=== PATIENT | female | born 1955 | race Caucasian/White ===

== ENCOUNTER 2017-05-15 08:31 | Outpatient (RCR) | payer OTHER ==
[~2017-05-15 08:31] MED LIST: ALPR.5T PO; AMLO10TA82 PO; ASPI-875 PO; ATRV10T PO; EXEN10PE SQ; IRON; LEVO75TA57 PO; MTF500T PO; NEBI20TA2 PO; NF-ESOM40C PO; OLME20TA21 PO; VITAMIN D; VNL75CCR PO; [UNRECOGNIZED DRUG - OTHER]; [UNRECOGNIZED DRUG - OTHER]; [UNRECOGNIZED DRUG - OTHER] PO
== END 2017-06-09 14:27 | disposition home or self-care (01) ==
PROVIDERS: ATTEND Nurse Practitioner Family
DX: Z47.1 Aftercare following joint replacement surgery (principal); Z96.652 Presence of left artificial knee joint

== ENCOUNTER → 2018-01-07 | Outpatient (CLI) | payer OTHER ==
[~2018-01-07] VITALS: Ht 165.1 cm; Wt 99.8 kg
[~2018-01-07] MED LIST changes: +CATHETER FLUSH 10 ML SYR IV PRN
[2018-01-07 09:24] VITALS: BP 151/86
--- NOTE | 2018-01-07 23:24 | STRESS TEST ---
DATE OF SERVICE: 01/07/2018 EXERCISE MYOVIEW STRESS TEST REPORT REFERRING PHYSICIAN: Dr. Kumari. Baseline heart rate is 72. Baseline blood pressure 151/86. Baseline EKG is sinus rhythm with no ischemic changes. In summary, the patient was injected with 9.99 mCi of technetium-99 Myoview and the resting images were obtained. Then, the patient started exercising with a baseline heart rate, blood pressure and EKG mentioned above. The patient was able to exercise for a total of 8 minutes 45 seconds on standard Andre protocol, achieving maximum heart rate of 139, which is 87% of maximum expected heart rate. With peak exercise level, there were no significant EKG changes. Blood pressure at peak was 184/105. During recovery, heart rate and blood pressure returned to baseline. EKG returned to baseline. The resting and stress images were reviewed and compared in the short axis, horizontal long axis, and vertical long axis views. Review of the images showed good radiotracer uptake with no significant ischemia or infarction. SSS is 0. TID value 1.04. On the gated images, the left ventricle appeared to be in normal size with normal contractility. Calculated ejection fraction is 64%. CONCLUSION: 1. Good exercise tolerance, a total of 8 minutes 45 seconds on standard Andre protocol, total of 10.3 METS achieving 87% of maximum expected heart rate. 2. Appropriate heart rate and blood pressure response to exercise returned to baseline during recovery. 3. No ischemia or infarction on SPECT images. 4. Negative exercise stress test by EKG criteria. 5. Normal left ventricular size with normal contractility. Calculated ejection fraction is 64%. Job ID: [id number] DocumentID: [id number] Dictated Date: 01/07/2018 19:12:31 Brand Activation Manager Date: 01/07/2018 22:46:21 Dictated By: YULI KEN MD
== END ==
LOC: CARD 07:32
PROVIDERS: ATTEND Internal Medicine Cardiovascular Disease
DX: R07.89 Other chest pain (principal); I51.7 Cardiomegaly; D64.9 Anemia, unspecified; E11.9 Type 2 diabetes mellitus without complications
CPT/HCPCS: 78452; 93017

== ENCOUNTER → 2018-01-22 | Outpatient (CLI) | payer OTHER ==
[~2018-01-22] MED LIST changes: -CATHETER FLUSH 10 ML SYR IV PRN
== END ==
LOC: CARD 09:42
PROVIDERS: ATTEND Internal Medicine Cardiovascular Disease
DX: R07.89 Other chest pain (principal); I11.9 Hypertensive heart disease without heart failure; D64.9 Anemia, unspecified; I08.1 Rheumatic disorders of both mitral and tricuspid valves
CPT/HCPCS: 93306

== ENCOUNTER → 2019-11-11 | Outpatient (CLI) | payer OTHER ==
--- NOTE | 2019-11-11 17:36 | Diagnostic Imaging Report ---
INDICATION: Back pain. EXAMINATION: AP and lateral views of the lumbar spine were obtained. FINDINGS: The lumbar vertebrae are normal in height and alignment. There are mild osteophytes anteriorly from L1 through L4. There is some facet degenerative change from L3 through S1. There is no significant focal disc space narrowing. There is mild levoscoliotic change. IMPRESSION: Mild levoscoliotic change and mild degenerative findings. No compression deformity or acute appearing abnormality. Dictated by: Dictated on workstation # [id number]
== END ==
LOC: RAD 16:16
PROVIDERS: ATTEND Family Medicine
DX: M47.816 Spondylosis without myelopathy or radiculopathy, lumbar region (principal); M41.9 Scoliosis, unspecified
CPT/HCPCS: 72100

== ENCOUNTER 2020-10-26 16:20 | Outpatient (RCR) | payer OTHER | END 2020-11-13 | disposition home or self-care (01) | PROVIDERS: ATTEND Family Medicine | DX: M54.5 Low back pain (principal); M25.512 Pain in left shoulder; M25.511 Pain in right shoulder; I10 Essential (primary) hypertension; E11.9 Type 2 diabetes mellitus without complications; Z96.653 Presence of artificial knee joint, bilateral ==

== ENCOUNTER → 2021-01-08 | Outpatient (CLI) | payer OTHER ==
--- NOTE | 2021-01-08 19:08 | Diagnostic Imaging Report ---
INDICATION: Foot pain. COMPARISON: None FINDINGS: Three radiographic views of the right foot were obtained. There is acute nondisplaced obliquely oriented fracture of the distal shaft of the 5th metatarsal. There is no evidence of intra-articular extension. Joint spaces are maintained. 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 No unexpected radiopaque foreign bodies are identified. IMPRESSION: 1. Acute nondisplaced fracture of the 5th metatarsal, as described above. Dictated by: Dictated on workstation # [id number]
== END ==
LOC: RAD 13:06
PROVIDERS: ATTEND Family Medicine
DX: S92.354A Nondisplaced fracture of fifth metatarsal bone, right foot, initial encounter for closed fracture (principal); L97.511 Non-pressure chronic ulcer of other part of right foot limited to breakdown of skin; X58.XXXA Exposure to other specified factors, initial encounter
CPT/HCPCS: 73630

== ENCOUNTER → 2021-01-23 | Outpatient (CLI) | payer OTHER ==
--- NOTE | 2021-01-23 17:26 | Diagnostic Imaging Report ---
INDICATION: Right foot pain. TIME OF EXAM: 4:34 PM 3 views right foot were obtained. There is an obliquely oriented fracture through the distal 5th metatarsal. There is a small amount of callus formation present consistent with some healing. Alignment is anatomic. Remaining metatarsals are intact. Phalanges appear intact. Midfoot and hindfoot are unremarkable apart from a large plantar calcaneal spur. IMPRESSION: Healing obliquely oriented distal 5th metatarsal fracture. Fracture line does remain clearly visible however. Dictated by: Dictated on workstation # [id number]
== END ==
LOC: RAD 16:04
PROVIDERS: ATTEND Family Medicine
DX: S92.351D Displaced fracture of fifth metatarsal bone, right foot, subsequent encounter for fracture with routine healing (principal); X58.XXXD Exposure to other specified factors, subsequent encounter
CPT/HCPCS: 73630

== ENCOUNTER → 2021-02-19 | Outpatient (CLI) | payer OTHER ==
--- NOTE | 2021-02-19 09:39 | Diagnostic Imaging Report ---
INDICATION: 5TH METATARSAL FRACTURE FOOT PAIN. TECHNIQUE: 3 views of the right foot CORRELATION STUDY: 01/23/2021 FINDINGS: Slight progressive interval healing of the obliquely oriented mildly displaced distal 5th metatarsal fracture. This includes slight increased callus formation. The fracture remains incompletely healed. Alignment stable. No new bony abnormality. Chronic deformity at the 2nd metatarsophalangeal joint, joint space narrowing and rather prominent osteophyte formation metatarsal head and base of the proximal phalanx. Prominent plantar calcaneal spur. IMPRESSION: 1. Slight but incomplete healing of an obliquely oriented mildly displaced 5th metatarsal fracture. Fracture line remains present. Dictated by: Dictated on workstation # [id number]
--- NOTE | 2021-02-19 10:14 | Diagnostic Imaging Report ---
INDICATION: Routine screening. COMPARISON: 11/30/2015 and 07/29/2014. TECHNIQUE: 2D and 3D bilateral screening mammography was performed with CAD. FINDINGS: Scattered fibroglandular densities are identified bilaterally. The parenchymal pattern is stable. No mass or malignant-appearing microcalcifications are seen. Axillae are unremarkable. IMPRESSION: No mammographic features suspicious for malignancy are identified. ACR BI-RADS Category 1: Negative. Result letter will be mailed to the patient. Note: At least 10% of breast cancer is not imaged by mammography. Dictated by: Dictated on workstation # [id number]
== END ==
LOC: RAD 08:45
PROVIDERS: ATTEND Family Medicine
DX: Z12.31 Encounter for screening mammogram for malignant neoplasm of breast (principal); S92.351A Displaced fracture of fifth metatarsal bone, right foot, initial encounter for closed fracture; X58.XXXA Exposure to other specified factors, initial encounter
CPT/HCPCS: 73630; 77063; 77067

== ENCOUNTER → 2021-03-13 | Outpatient (CLI) | payer OTHER ==
--- NOTE | 2021-03-13 11:20 | Diagnostic Imaging Report ---
Right foot at 914h. INDICATION: Follow-up fracture 5th metatarsal 3 views were obtained. The prior exam of 02/19/2021 noted an incompletely healed fracture of the neck of the 5th metacarpal. Findings again evident on this study does not appear to have changed significantly. There is no new healing callus formation identified and the fracture line is still partially visualized. The overall appearance of the right foot is otherwise stable. No new abnormality has developed otherwise. IMPRESSION: There is a healing fracture of the neck of the 5th metacarpal. There is no acute bony abnormality noted. Dictated by: Dictated on workstation # [id number]
== END ==
LOC: RAD 08:40
PROVIDERS: ATTEND Family Medicine
DX: S92.351D Displaced fracture of fifth metatarsal bone, right foot, subsequent encounter for fracture with routine healing (principal); X58.XXXD Exposure to other specified factors, subsequent encounter
CPT/HCPCS: 73630

== ENCOUNTER → 2021-04-10 | Outpatient (CLI) | payer OTHER ==
--- NOTE | 2021-04-10 09:32 | Diagnostic Imaging Report ---
EXAMINATION: Right foot at 8:49 AM. INDICATION: Foot pain. TECHNIQUE: Three views were obtained. FINDINGS: The prior exam of 03/13/2021 noted a healing fracture of the neck of the fifth metatarsal. That finding is again evident on this study and does not appear to have changed significantly. The fracture line itself is barely visible indicating that the fracture has nearly completely, if not completely, healed. No other fracture or acute bony abnormality is identified. The severe degenerative changes involving the second metatarsophalangeal joint seen previously are again noted and no different. The prominent calcaneal spur seen on the prior exam is also unchanged. The soft tissues are unremarkable. IMPRESSION: 1. The healing fracture of the neck of the fifth metatarsal seen previously is again evident. The fracture appears to have nearly completely, if not completely, healed. 2. There is no acute bony abnormality noted otherwise. Dictated by: Dictated on workstation # [id number]
== END ==
LOC: RAD 08:20
DX: S92.351D Displaced fracture of fifth metatarsal bone, right foot, subsequent encounter for fracture with routine healing (principal); X58.XXXD Exposure to other specified factors, subsequent encounter
CPT/HCPCS: 73630

== ENCOUNTER → 2021-10-25 | Outpatient (CLI) | payer MEDICARE ==
--- NOTE | 2021-10-25 12:49 | Diagnostic Imaging Report ---
INDICATION: Shortness of breath. EXAMINATION: PA and lateral chest. FINDINGS: Heart size and pulmonary vascularity are normal. Lungs are clear. There are no effusions or pneumothoraces. IMPRESSION: No acute abnormalities in the chest. Dictated by: Dictated on workstation # [id number]
== END ==
LOC: RAD 10:31
PROVIDERS: ATTEND Family Medicine
DX: R06.02 Shortness of breath (principal)
CPT/HCPCS: 71046

== ENCOUNTER → 2022-03-11 | Outpatient (CLI) | payer MEDICARE ==
--- NOTE | 2022-03-11 13:25 | Diagnostic Imaging Report ---
INDICATION: Routine screening. COMPARISON: 02/19/2021 and 11/30/2015. TECHNIQUE: 2D and 3D bilateral screening mammography was performed with CAD. FINDINGS: Scattered fibroglandular densities are identified bilaterally. The parenchymal pattern is stable. No mass or malignant-appearing microcalcifications are seen. The axillae are unremarkable. IMPRESSION: No mammographic features suspicious for malignancy are identified. ACR BI-RADS Category 1: Negative. Result letter will be mailed to the patient. Note: At least 10% of breast cancer is not imaged by mammography. Dictated on workstation # [id number]
== END ==
LOC: RAD 09:10
PROVIDERS: ATTEND Family Medicine
DX: Z12.31 Encounter for screening mammogram for malignant neoplasm of breast (principal)
CPT/HCPCS: 77063; 77067

== ENCOUNTER → 2022-04-01 | Outpatient (CLI) | payer MEDICARE | LOC: CARD 10:04 | PROVIDERS: ATTEND Physician Assistant | DX: I35.1 Nonrheumatic aortic (valve) insufficiency (principal); I10 Essential (primary) hypertension | CPT/HCPCS: 93306 ==

== ENCOUNTER → 2022-05-13 | Outpatient (CLI) | payer MEDICARE ==
[~2022-05-13] MED LIST changes: +CATHETER FLUSH 10 ML SYR IVP PRN
[2022-05-13 09:12] VITALS: BP 153/73
--- NOTE | 2022-05-13 11:01 | Cardiology Stress Test Report ---
Stress Test Report Date of Procedure/Referring: Date of Procedure: May 13, 2022 PCP Yahir Kumari DO Admitting Physician Admitting Physician: Attending Physician: Windy Ascencio Baseline Heart Rate: 61 Baseline Blood Pressure: Blood Pressure Systolic: 153 Blood Pressure Diastolic: 73 Vital Signs Date Time Temp Pulse Resp B/P (MAP) Pulse Ox O2 Delivery O2 Flow Rate FiO2 05/13/22 09:12 61 153/73 (99) Baseline Vital Signs Vital Signs Date Time Temp Pulse Resp B/P (MAP) Pulse Ox O2 Delivery O2 Flow Rate FiO2 05/13/22 09:12 61 153/73 (99) Baseline EKG: Baseline EKG: NSR Summary: After explaining the procedure and details to the patient, she signed the consent and was brought to the stress nuclear laboratory. Patient exercised on standard Andre protocol, EKG, heart rate and blood pressure were monitored continuously, resting and stress doses of radio tracer were injected, imaging was acquired and reviewed in the short axis, horizontal long axis and vertical long axis views Patient was able to exercise for a total of 7.30 minutes on Andre protocol, MET s 9.1 Maximum heart rate 139 Maximum blood pressure 233/81 Stress EKG, Minimal nondiagnostic changes Recovery EKG, Return to baseline TID: 0.87 SSS: 1 SDS: 1 EF: 64 Conclusion: 1. Good exercise tolerance for a total of 7 minutes and 30 seconds on standard Andre protocol, 9.1 METS achieving 89% of maximum expected heart rate 2. Appropriate heart rate response to exercise with severe hypertensive response to exercise with peak blood pressure 233/81 return to baseline during recovery 3. Nondiagnostic EKG changes with exercise return to baseline during recovery 4. No significant ischemia or infarction noted on SPECT images 5. Normal left ventricular size, ejection fraction 64% Copy Copies To 1: YAHIR KUMARI BASHAR J MD May 13, 2022 11:01
== END ==
LOC: CARD 07:09
PROVIDERS: ATTEND Physician Assistant
DX: I25.10 Atherosclerotic heart disease of native coronary artery without angina pectoris (principal); I10 Essential (primary) hypertension
CPT/HCPCS: 78452; 93017; A9502

== ENCOUNTER → 2023-02-28 | Outpatient (CLI) | payer MEDICARE ==
[~2023-02-28] MED LIST changes: -CATHETER FLUSH 10 ML SYR IVP PRN
--- NOTE | 2023-02-28 16:07 | Diagnostic Imaging Report ---
INDICATION: Low back pain. TIME OF EXAM: 11:05 a.m. FINDINGS: AP, lateral, and coned lumbosacral views of the lumbar spine were obtained. There is very slight left convexity lumbar scoliotic curvature. There is normal lordotic curvature. Vertebral body heights are well maintained. No acute compression fracture is detected. Lumbar disks are fairly well maintained. There is degenerative disc disease in the lower thoracic spine, particularly at T11-T12 and T12-L1 levels where there is disc space narrowing and marginal spurring. IMPRESSION: Mild lumbar scoliosis, but no acute bony abnormality is identified. There is lower thoracic spondylosis. Dictated by: Dictated on workstation # [id number]
== END ==
LOC: RAD 10:43
PROVIDERS: ATTEND Family Medicine
DX: M41.86 Other forms of scoliosis, lumbar region (principal); M47.814 Spondylosis without myelopathy or radiculopathy, thoracic region
CPT/HCPCS: 72100

== ENCOUNTER → 2023-03-14 | Outpatient (CLI) | payer MEDICARE ==
--- NOTE | 2023-03-14 16:46 | Diagnostic Imaging Report ---
INDICATION: Routine screening. COMPARISON: Prior mammograms from 03/11/2022 and 02/19/2021. EXAMINATION: 2D and 3D bilateral screening mammography was performed with CAD. The current study was also evaluated with a Computer Aided Detection (CAD) system. FINDINGS: Scattered fibroglandular densities are identified, bilaterally. The parenchymal pattern is stable. No mass or malignant-appearing microcalcifications are seen. Axillae are unremarkable. IMPRESSION: No mammographic features suspicious for malignancy are identified. ACR BI-RADS Category 1: Negative. Result letter will be mailed to the patient. Note: At least 10% of breast cancer is not imaged by mammography. Dictated on workstation # [id number]
== END ==
LOC: RAD 10:15
PROVIDERS: ATTEND Family Medicine
DX: Z12.31 Encounter for screening mammogram for malignant neoplasm of breast (principal)
CPT/HCPCS: 77063; 77067